=== PATIENT | female | born 1950 | race Caucasian/White ===

== ENCOUNTER 2020-11-25 21:32 | Inpatient (IN) ==
[2020-11-26] MEDS ORDERED: Naloxone 0.4 MG/ML INJ IVP PRN (00:43)
[2020-11-26] MEDS ORDERED: Ondansetron 4 MG/2 ML VIAL IVP PRN (00:43)
[2020-11-26 01:47] LABS: Basophils % 0.3 %; Hematocrit 37.4 % (35.3-44.9); Hemoglobin 12.5 g/dL (11.5-15.4); Immature Granulocytes % 0.8 % (0-4); Lymphocytes # 1.1 K/mcL (0.6-4.6); Lymphocytes % 30.3 %; Mean Corpuscular HGB Conc 33.4 g/dL (31.6-35.5); Mean Corpuscular Hemoglobin 30.7 pg (28.0-33.3); Mean Corpuscular Volume 91.9 fL (83.0-100.0); Mean Platelet Volume 9.7 fL (9.4-12.4); Monocytes # 0.4 K/mcL (0.0-1.3); Neutrophils # 2.2 K/mcL (1.6-8.9); Platelet Count 249 K/mcL (140-400); Red Blood Count 4.07 M/mcL (3.82-4.97); Red Cell Distribution Width 13.5 % (11.5-14.5); Segmented Neutrophils % 58.6 %; White Blood Count 3.7 K/mcL (4.3-11.1)
[2020-11-26] MEDS: Acetaminophen 325 MG TABLET PO PRN ×2 (01:48→21:34)
[2020-11-26 02:02] LABS: INR 1.1; Prothrombin Time 12.4 Seconds (9.4-12.1)
[2020-11-26 02:05] LABS: Platelet Estimate Normal (Normal); Toxic Granulation Present (Not Present); Toxic Vacuolation Present (Not Present)
[2020-11-26 02:06] LABS: Anisocytosis 1+ (Not Present); Reactive Lymphocytes Present (Not Present)
[2020-11-26 02:07] LABS: Alanine Aminotransferase 30 Units/L (7-52); Albumin 3.2 g/dL (3.5-5.7); Albumin/Globulin Ratio 1.2 (1.1-2.2); Alkaline Phosphatase 91 Units/L (34-104); Aspartate Amino Transferase 50 Units/L (13-39); BUN/Creatinine Ratio 15 (6-26); Bilirubin,Total 0.4 mg/dL (0.3-1.0); Blood Urea Nitrogen 7 mg/dL (8-23); Calcium 8.3 mg/dL (8.6-10.3); Carbon Dioxide 24 mEq/L (23-29); Chloride 108 mEq/L (98-107); Globulin 2.7 g/dL (2.4-3.5); Glucose 140 mg/dL (70-105); Lactate Dehydrogenase 644 Units/L (140-271); Magnesium 1.8 mg/dL (1.6-2.6); Osmolality,Calculated 290 (280-300); Potassium 3.7 mEq/L (3.5-5.1); Sodium 140 mEq/L (136-145); Total Protein 5.9 g/dL (6.4-8.9); eGFR For African Americans > 60 (> 60); eGFR For Non-African Americans > 60 (> 60)
[2020-11-26 02:31] LABS: Ferritin 971 ng/mL (10-120)
[2020-11-26] MEDS: Ipratropium 1 PUFF INHALER IH SCH ×7 (03:57→23:09)
[2020-11-26] MEDS: *HR* Enoxaparin 30 MG/0.3 ML SYRINGE SQ SCH (04:55)
[2020-11-26] MEDS: levoFLOXacin 750 MG TABLET PO SCH (08:30)
[2020-11-26] MEDS: Dexamethasone 4 MG/ML VIAL IVP SCH (08:32)
[2020-11-26] MEDS ORDERED: Nicotine 2 MG GUM BC PRN (17:48)
[2020-11-26] MEDS: Latanoprost 2.5 ML BOTTLE BOTH EYES SCH (21:34)
[2020-11-27] MEDS: Ipratropium 1 PUFF INHALER IH SCH ×6 (04:16→23:27)
[2020-11-27] MEDS: *HR* Enoxaparin 30 MG/0.3 ML SYRINGE SQ SCH (07:50)
[2020-11-27] MEDS: Dexamethasone 4 MG/ML VIAL IVP SCH (08:36)
[2020-11-27] MEDS: levoFLOXacin 750 MG TABLET PO SCH (08:36)
[2020-11-27] MEDS ORDERED: Aspirin Enteric Coated 81 MG Tablet PO SCH (09:00)
[2020-11-27] MEDS ORDERED: Dexamethasone Sodium Phos/PF 10 MG/ML VIAL IVP ONE (11:12)
[2020-11-27 13:56] LABS: Hematocrit 37.6 % (35.3-44.9); Hemoglobin 12.4 g/dL (11.5-15.4); Mean Corpuscular Hemoglobin 30.2 pg (28.0-33.3); Mean Corpuscular Volume 91.7 fL (83.0-100.0); Mean Platelet Volume 9.5 fL (9.4-12.4); Platelet Count 335 K/mcL (140-400); Red Cell Distribution Width 13.4 % (11.5-14.5)
[2020-11-27 13:57] LABS: White Blood Count 12.1 K/mcL (4.3-11.1)
[2020-11-27 14:17] LABS: Alanine Aminotransferase 45 Units/L (7-52); Albumin 3.1 g/dL (3.5-5.7); Albumin/Globulin Ratio 1.1 (1.1-2.2); Alkaline Phosphatase 107 Units/L (34-104); Aspartate Amino Transferase 55 Units/L (13-39); BUN/Creatinine Ratio 27 (6-26); Bilirubin,Direct 0.1 mg/dL (0.0-0.2); Bilirubin,Indirect 0.4 mg/dL (0.0-1.0); Bilirubin,Total 0.5 mg/dL (0.3-1.0); Blood Urea Nitrogen 13 mg/dL (8-23); Calcium 8.4 mg/dL (8.6-10.3); Carbon Dioxide 27 mEq/L (23-29); Chloride 106 mEq/L (98-107); Globulin 2.7 g/dL (2.4-3.5); Glucose 179 mg/dL (70-105); Osmolality,Calculated 297 (280-300); Potassium 3.9 mEq/L (3.5-5.1); Sodium 141 mEq/L (136-145); Total Protein 5.8 g/dL (6.4-8.9); eGFR For African Americans > 60 (> 60); eGFR For Non-African Americans > 60 (> 60)
[2020-11-27] MEDS ORDERED: Remdesivir 200 MG in 0.9 % Sodium Chloride 100 ML IVPB ONE (15:00)
[2020-11-27] MEDS: Acetaminophen 325 MG TABLET PO PRN (20:50)
[2020-11-27] MEDS: Latanoprost 2.5 ML BOTTLE BOTH EYES SCH (20:54)
[2020-11-28] MEDS: Ipratropium 1 PUFF INHALER IH SCH ×5 (03:58→20:20)
[2020-11-28] MEDS: *HR* Enoxaparin 40 MG/0.4 ML SYRINGE SQ SCH (05:12)
[2020-11-28 05:33] LABS: INR 1.1; Prothrombin Time 12.6 Seconds (9.4-12.1)
[2020-11-28 05:40] LABS: Alanine Aminotransferase 42 Units/L (7-52); Albumin 2.9 g/dL (3.5-5.7); Albumin/Globulin Ratio 1.1 (1.1-2.2); Alkaline Phosphatase 102 Units/L (34-104); Aspartate Amino Transferase 36 Units/L (13-39); BUN/Creatinine Ratio 38 (6-26); Bilirubin,Direct 0.1 mg/dL (0.0-0.2); Bilirubin,Indirect 0.4 mg/dL (0.0-1.0); Bilirubin,Total 0.5 mg/dL (0.3-1.0); Blood Urea Nitrogen 16 mg/dL (8-23); Calcium 8.3 mg/dL (8.6-10.3); Carbon Dioxide 25 mEq/L (23-29); Chloride 106 mEq/L (98-107); Globulin 2.6 g/dL (2.4-3.5); Glucose 133 mg/dL (70-105); Osmolality,Calculated 293 (280-300); Potassium 3.8 mEq/L (3.5-5.1); Sodium 140 mEq/L (136-145); Total Protein 5.5 g/dL (6.4-8.9); eGFR For African Americans > 60 (> 60); eGFR For Non-African Americans > 60 (> 60)
[2020-11-28 06:12] LABS: Mean Corpuscular HGB Conc 33.4 g/dL (31.6-35.5); Mean Corpuscular Hemoglobin 30.5 pg (28.0-33.3); Mean Platelet Volume 9.7 fL (9.4-12.4); Platelet Count 337 K/mcL (140-400); Red Blood Count 3.84 M/mcL (3.82-4.97); Red Cell Distribution Width 13.4 % (11.5-14.5); White Blood Count 7.8 K/mcL (4.3-11.1)
[2020-11-28 06:13] LABS: Hemoglobin 11.7 g/dL (11.5-15.4); Mean Corpuscular Volume 91.1 fL (83.0-100.0)
[2020-11-28 06:48] LABS: Magnesium 2.1 mg/dL (1.6-2.6)
[2020-11-28] MEDS: Dexamethasone Sodium Phos/PF 10 MG/ML VIAL IVP SCH (08:55)
[2020-11-28] MEDS: Remdesivir 100 MG in 0.9 % Sodium Chloride 100 ML IVPB SCH (15:39)
[2020-11-28] MEDS ORDERED: Furosemide 20 MG/2 ML VIAL IVP ONE (16:00)
[2020-11-28] MEDS: Latanoprost 2.5 ML BOTTLE BOTH EYES SCH (20:32)
[2020-11-28] MEDS: Acetaminophen 325 MG TABLET PO PRN (20:43)
[2020-11-29] MEDS: Ipratropium 1 PUFF INHALER IH SCH ×7 (00:25→23:12)
[2020-11-29 03:53] LABS: INR 1.2; Prothrombin Time 13.6 Seconds (9.4-12.1)
[2020-11-29 04:01] LABS: Alanine Aminotransferase 76 Units/L (7-52); Albumin 2.9 g/dL (3.5-5.7); Albumin/Globulin Ratio 1.1 (1.1-2.2); Alkaline Phosphatase 95 Units/L (34-104); Aspartate Amino Transferase 49 Units/L (13-39); BUN/Creatinine Ratio 54 (6-26); Bilirubin,Direct 0.2 mg/dL (0.0-0.2); Bilirubin,Indirect 0.4 mg/dL (0.0-1.0); Bilirubin,Total 0.6 mg/dL (0.3-1.0); Blood Urea Nitrogen 26 mg/dL (8-23); Calcium 8.1 mg/dL (8.6-10.3); Carbon Dioxide 29 mEq/L (23-29); Chloride 105 mEq/L (98-107); Globulin 2.7 g/dL (2.4-3.5); Glucose 140 mg/dL (70-105); Hematocrit 36.3 % (35.3-44.9); Hemoglobin 11.9 g/dL (11.5-15.4); Mean Corpuscular HGB Conc 32.8 g/dL (31.6-35.5); Mean Corpuscular Hemoglobin 30.6 pg (28.0-33.3); Mean Corpuscular Volume 93.3 fL (83.0-100.0); Mean Platelet Volume 10.3 fL (9.4-12.4); Osmolality,Calculated 301 (280-300); Platelet Count 353 K/mcL (140-400); Potassium 3.6 mEq/L (3.5-5.1); Red Blood Count 3.89 M/mcL (3.82-4.97); Red Cell Distribution Width 13.5 % (11.5-14.5); Sodium 142 mEq/L (136-145); Total Protein 5.6 g/dL (6.4-8.9); White Blood Count 11.3 K/mcL (4.3-11.1); eGFR For African Americans > 60 (> 60); eGFR For Non-African Americans > 60 (> 60)
[2020-11-29] MEDS: *HR* Enoxaparin 40 MG/0.4 ML SYRINGE SQ SCH (05:47)
[2020-11-29] MEDS ORDERED: Furosemide 40 MG/4 ML VIAL IVP ONE (08:08)
[2020-11-29] MEDS: Dexamethasone Sodium Phos/PF 10 MG/ML VIAL IVP SCH (08:49)
[2020-11-29] MEDS ORDERED: Furosemide 20 MG/2 ML VIAL IVP ONE (11:57)
[2020-11-29] MEDS: Remdesivir 100 MG in 0.9 % Sodium Chloride 100 ML IVPB SCH (15:16)
[2020-11-29] MEDS: Latanoprost 2.5 ML BOTTLE BOTH EYES SCH (21:09)
[2020-11-29] MEDS: Acetaminophen 325 MG TABLET PO PRN (21:28)
[2020-11-29] MEDS: Melatonin 3 MG TABLET PO PRN (21:28)
[2020-11-30] MEDS: Ipratropium 1 PUFF INHALER IH SCH ×6 (04:37→23:01)
[2020-11-30 05:15] LABS: Hematocrit 35.9 % (35.3-44.9); Hemoglobin 11.8 g/dL (11.5-15.4); Mean Corpuscular HGB Conc 32.9 g/dL (31.6-35.5); Mean Corpuscular Hemoglobin 30.8 pg (28.0-33.3); Mean Corpuscular Volume 93.7 fL (83.0-100.0); Mean Platelet Volume 9.9 fL (9.4-12.4); Platelet Count 393 K/mcL (140-400); Red Blood Count 3.83 M/mcL (3.82-4.97); Red Cell Distribution Width 13.1 % (11.5-14.5); White Blood Count 9.9 K/mcL (4.3-11.1)
[2020-11-30 05:22] LABS: INR 1.2; Prothrombin Time 13.5 Seconds (9.4-12.1)
[2020-11-30 05:34] LABS: Alanine Aminotransferase 64 Units/L (7-52); Albumin 2.9 g/dL (3.5-5.7); Albumin/Globulin Ratio 1.1 (1.1-2.2); Alkaline Phosphatase 88 Units/L (34-104); Aspartate Amino Transferase 27 Units/L (13-39); BUN/Creatinine Ratio 50 (6-26); Bilirubin,Direct 0.1 mg/dL (0.0-0.2); Bilirubin,Indirect 0.6 mg/dL (0.0-1.0); Bilirubin,Total 0.7 mg/dL (0.3-1.0); Blood Urea Nitrogen 31 mg/dL (8-23); Calcium 8.3 mg/dL (8.6-10.3); Carbon Dioxide 34 mEq/L (23-29); Chloride 103 mEq/L (98-107); Globulin 2.7 g/dL (2.4-3.5); Glucose 134 mg/dL (70-105); Osmolality,Calculated 305 (280-300); Potassium 3.7 mEq/L (3.5-5.1); Sodium 143 mEq/L (136-145); Total Protein 5.6 g/dL (6.4-8.9); eGFR For African Americans > 60 (> 60); eGFR For Non-African Americans > 60 (> 60)
[2020-11-30] MEDS: *HR* Enoxaparin 40 MG/0.4 ML SYRINGE SQ SCH (06:16)
[2020-11-30] MEDS: Dexamethasone Sodium Phos/PF 10 MG/ML VIAL IVP SCH (08:01)
[2020-11-30] MEDS: Remdesivir 100 MG in 0.9 % Sodium Chloride 100 ML IVPB SCH (15:38)
[2020-11-30] MEDS ORDERED: Furosemide 40 MG/4 ML VIAL IVP ONE (17:08)
[2020-11-30] MEDS: Latanoprost 2.5 ML BOTTLE BOTH EYES SCH (20:37)
[2020-11-30] MEDS: Acetaminophen 325 MG TABLET PO PRN (22:41)
[2020-12-01 02:58] LABS: Hematocrit 36.7 % (35.3-44.9); Hemoglobin 12.3 g/dL (11.5-15.4); Mean Corpuscular HGB Conc 33.5 g/dL (31.6-35.5); Mean Corpuscular Hemoglobin 31.1 pg (28.0-33.3); Mean Corpuscular Volume 92.9 fL (83.0-100.0); Mean Platelet Volume 9.7 fL (9.4-12.4); Platelet Count 383 K/mcL (140-400); Red Blood Count 3.95 M/mcL (3.82-4.97); Red Cell Distribution Width 12.9 % (11.5-14.5); White Blood Count 13.3 K/mcL (4.3-11.1)
[2020-12-01 03:06] LABS: INR 1.2; Prothrombin Time 14.2 Seconds (9.4-12.1)
[2020-12-01 03:17] LABS: Alanine Aminotransferase 61 Units/L (7-52); Albumin 2.9 g/dL (3.5-5.7); Albumin/Globulin Ratio 1.1 (1.1-2.2); Alkaline Phosphatase 88 Units/L (34-104); Aspartate Amino Transferase 28 Units/L (13-39); BUN/Creatinine Ratio 53 (6-26); Bilirubin,Direct 0.2 mg/dL (0.0-0.2); Bilirubin,Indirect 0.5 mg/dL (0.0-1.0); Bilirubin,Total 0.7 mg/dL (0.3-1.0); Blood Urea Nitrogen 27 mg/dL (8-23); Calcium 8.2 mg/dL (8.6-10.3); Carbon Dioxide 31 mEq/L (23-29); Chloride 104 mEq/L (98-107); Globulin 2.7 g/dL (2.4-3.5); Glucose 126 mg/dL (70-105); Osmolality,Calculated 299 (280-300); Potassium 3.6 mEq/L (3.5-5.1); Sodium 141 mEq/L (136-145); Total Protein 5.6 g/dL (6.4-8.9); eGFR For African Americans > 60 (> 60); eGFR For Non-African Americans > 60 (> 60)
[2020-12-01] MEDS: Ipratropium 1 PUFF INHALER IH SCH ×6 (04:16→23:00)
[2020-12-01] MEDS: *HR* Enoxaparin 40 MG/0.4 ML SYRINGE SQ SCH (05:57)
[2020-12-01] MEDS: Dexamethasone Sodium Phos/PF 10 MG/ML VIAL IVP SCH (09:17)
[2020-12-01] MEDS ORDERED: Sennosides/Docusate Sodium TABLET PO PRN (13:54)
[2020-12-01] MEDS ORDERED: Sennosides/Docusate Sodium TABLET PO ONE (13:55)
[2020-12-01] MEDS: Remdesivir 100 MG in 0.9 % Sodium Chloride 100 ML IVPB SCH (15:52)
[2020-12-01] MEDS: Latanoprost 2.5 ML BOTTLE BOTH EYES SCH (21:32)
[2020-12-01] MEDS: Acetaminophen 325 MG TABLET PO PRN (21:55)
[2020-12-02] MEDS: Ipratropium 1 PUFF INHALER IH SCH ×5 (03:56→19:56)
[2020-12-02] MEDS: *HR* Enoxaparin 40 MG/0.4 ML SYRINGE SQ SCH (05:45)
[2020-12-02 05:52] LABS: Basophils % 0.5 %; Eosinophils # 0.1 K/mcL (0.0-0.6); Hematocrit 35.9 % (35.3-44.9); Hemoglobin 11.9 g/dL (11.5-15.4); Immature Granulocytes % 0.9 % (0-4); Lymphocytes # 1.2 K/mcL (0.6-4.6); Lymphocytes % 14.1 %; Mean Corpuscular HGB Conc 33.1 g/dL (31.6-35.5); Mean Corpuscular Hemoglobin 30.7 pg (28.0-33.3); Mean Corpuscular Volume 92.5 fL (83.0-100.0); Monocytes # 0.9 K/mcL (0.0-1.3); Monocytes % 10.5 %; Neutrophils # 6.3 K/mcL (1.6-8.9); Platelet Count 371 K/mcL (140-400); Red Blood Count 3.88 M/mcL (3.82-4.97); Red Cell Distribution Width 13.1 % (11.5-14.5); White Blood Count 8.6 K/mcL (4.3-11.1)
[2020-12-02 06:10] LABS: Alanine Aminotransferase 54 Units/L (7-52); Albumin 2.8 g/dL (3.5-5.7); Alkaline Phosphatase 94 Units/L (34-104); Aspartate Amino Transferase 23 Units/L (13-39); BUN/Creatinine Ratio 41 (6-26); Bilirubin,Direct 0.2 mg/dL (0.0-0.2); Bilirubin,Indirect 0.4 mg/dL (0.0-1.0); Bilirubin,Total 0.6 mg/dL (0.3-1.0); Blood Urea Nitrogen 22 mg/dL (8-23); Calcium 8.2 mg/dL (8.6-10.3); Carbon Dioxide 34 mEq/L (23-29); Chloride 103 mEq/L (98-107); Globulin 2.7 g/dL (2.4-3.5); Glucose 148 mg/dL (70-105); Osmolality,Calculated 298 (280-300); Sodium 141 mEq/L (136-145); Total Protein 5.5 g/dL (6.4-8.9); eGFR For African Americans > 60 (> 60); eGFR For Non-African Americans > 60 (> 60)
[2020-12-02] MEDS ORDERED: Furosemide 20 MG/2 ML VIAL IVP ONE (07:45)
[2020-12-02] MEDS: Dexamethasone Sodium Phos/PF 10 MG/ML VIAL IVP SCH (08:03)
[2020-12-02] MEDS: Acetaminophen 325 MG TABLET PO PRN (19:53)
[2020-12-02] MEDS: Latanoprost 2.5 ML BOTTLE BOTH EYES SCH (20:07)
[2020-12-03] MEDS: Ipratropium 1 PUFF INHALER IH SCH ×6 (00:26→20:13)
[2020-12-03 06:33] LABS: Basophils % 0.3 %; Eosinophils # 0.5 K/mcL (0.0-0.6); Eosinophils % 4.7 %; Hematocrit 38.3 % (35.3-44.9); Hemoglobin 12.6 g/dL (11.5-15.4); Immature Granulocytes % 1.7 % (0-4); Lymphocytes # 1.7 K/mcL (0.6-4.6); Lymphocytes % 14.8 %; Mean Corpuscular HGB Conc 32.9 g/dL (31.6-35.5); Mean Corpuscular Hemoglobin 30.7 pg (28.0-33.3); Mean Corpuscular Volume 93.4 fL (83.0-100.0); Mean Platelet Volume 10.1 fL (9.4-12.4); Monocytes # 1.2 K/mcL (0.0-1.3); Monocytes % 10.8 %; Neutrophils # 7.8 K/mcL (1.6-8.9); Platelet Count 373 K/mcL (140-400); Red Cell Distribution Width 13.2 % (11.5-14.5); Segmented Neutrophils % 67.7 %; White Blood Count 11.4 K/mcL (4.3-11.1)
[2020-12-03] MEDS: *HR* Enoxaparin 40 MG/0.4 ML SYRINGE SQ SCH (06:53)
[2020-12-03 06:55] LABS: Alanine Aminotransferase 44 Units/L (7-52); Albumin 2.7 g/dL (3.5-5.7); Alkaline Phosphatase 89 Units/L (34-104); Aspartate Amino Transferase 15 Units/L (13-39); BUN/Creatinine Ratio 34 (6-26); Bilirubin,Direct 0.2 mg/dL (0.0-0.2); Bilirubin,Indirect 0.6 mg/dL (0.0-1.0); Bilirubin,Total 0.8 mg/dL (0.3-1.0); Blood Urea Nitrogen 22 mg/dL (8-23); Calcium 8.3 mg/dL (8.6-10.3); Carbon Dioxide 35 mEq/L (23-29); Chloride 102 mEq/L (98-107); Globulin 2.8 g/dL (2.4-3.5); Glucose 120 mg/dL (70-105); Osmolality,Calculated 295 (280-300); Potassium 4.3 mEq/L (3.5-5.1); Sodium 140 mEq/L (136-145); Total Protein 5.5 g/dL (6.4-8.9); eGFR For African Americans > 60 (> 60); eGFR For Non-African Americans > 60 (> 60)
[2020-12-03] MEDS ORDERED: Furosemide 20 MG/2 ML VIAL IVP ONE (07:36)
[2020-12-03] MEDS: Dexamethasone Sodium Phos/PF 10 MG/ML VIAL IVP SCH (09:13)
[2020-12-03] MEDS ORDERED: Triamcinolone Acet 0.1% CRM 15 GM TUBE TP PRN (14:47)
[2020-12-03] MEDS: polyethylene glycoL 3350 17 GM POWD.PACK PO SCH (15:41)
[2020-12-03] MEDS: Latanoprost 2.5 ML BOTTLE BOTH EYES SCH (20:31)
[2020-12-04] MEDS: Ipratropium 1 PUFF INHALER IH SCH ×7 (00:16→23:24)
[2020-12-04] MEDS: Melatonin 3 MG TABLET PO PRN (00:47)
[2020-12-04 04:57] LABS: Basophils # 0.1 K/mcL (0.0-0.2); Basophils % 0.5 %; Eosinophils # 0.4 K/mcL (0.0-0.6); Eosinophils % 3.3 %; Hematocrit 37.3 % (35.3-44.9); Hemoglobin 12.3 g/dL (11.5-15.4); Immature Granulocytes % 2.8 % (0-4); Lymphocytes # 1.5 K/mcL (0.6-4.6); Lymphocytes % 12.9 %; Mean Corpuscular Hemoglobin 30.2 pg (28.0-33.3); Mean Corpuscular Volume 91.6 fL (83.0-100.0); Mean Platelet Volume 10.5 fL (9.4-12.4); Monocytes # 1.4 K/mcL (0.0-1.3); Monocytes % 11.5 %; Neutrophils # 8.3 K/mcL (1.6-8.9); Platelet Count 376 K/mcL (140-400); Red Blood Count 4.07 M/mcL (3.82-4.97); Red Cell Distribution Width 13.2 % (11.5-14.5)
[2020-12-04 05:16] LABS: Alanine Aminotransferase 40 Units/L (7-52); Albumin 2.8 g/dL (3.5-5.7); Alkaline Phosphatase 82 Units/L (34-104); Aspartate Amino Transferase 12 Units/L (13-39); BUN/Creatinine Ratio 39 (6-26); Bilirubin,Direct 0.2 mg/dL (0.0-0.2); Bilirubin,Indirect 0.4 mg/dL (0.0-1.0); Bilirubin,Total 0.6 mg/dL (0.3-1.0); Blood Urea Nitrogen 22 mg/dL (8-23); Calcium 8.3 mg/dL (8.6-10.3); Carbon Dioxide 33 mEq/L (23-29); Chloride 99 mEq/L (98-107); Globulin 2.8 g/dL (2.4-3.5); Glucose 194 mg/dL (70-105); Osmolality,Calculated 297 (280-300); Potassium 3.9 mEq/L (3.5-5.1); Sodium 139 mEq/L (136-145); Total Protein 5.6 g/dL (6.4-8.9); eGFR For African Americans > 60 (> 60); eGFR For Non-African Americans > 60 (> 60)
[2020-12-04] MEDS: *HR* Enoxaparin 40 MG/0.4 ML SYRINGE SQ SCH (05:42)
[2020-12-04] MEDS: polyethylene glycoL 3350 17 GM POWD.PACK PO SCH (07:26)
[2020-12-04] MEDS: Dexamethasone Sodium Phos/PF 10 MG/ML VIAL IVP SCH (07:26)
[2020-12-04] MEDS: Latanoprost 2.5 ML BOTTLE BOTH EYES SCH (19:44)
[2020-12-05] MEDS: Melatonin 3 MG TABLET PO PRN ×2 (02:06→20:49)
[2020-12-05] MEDS: Acetaminophen 325 MG TABLET PO PRN (02:07)
[2020-12-05] MEDS: Ipratropium 1 PUFF INHALER IH SCH ×6 (03:36→23:34)
[2020-12-05 04:16] LABS: Basophils # 0.1 K/mcL (0.0-0.2); Basophils % 0.5 %; Eosinophils # 0.4 K/mcL (0.0-0.6); Hematocrit 38.2 % (35.3-44.9); Hemoglobin 12.6 g/dL (11.5-15.4); Lymphocytes # 1.7 K/mcL (0.6-4.6); Lymphocytes % 12.5 %; Mean Corpuscular Volume 93.9 fL (83.0-100.0); Mean Platelet Volume 10.4 fL (9.4-12.4); Monocytes # 1.5 K/mcL (0.0-1.3); Monocytes % 11.1 %; Neutrophils # 9.2 K/mcL (1.6-8.9); Platelet Count 390 K/mcL (140-400); Red Blood Count 4.07 M/mcL (3.82-4.97); Red Cell Distribution Width 13.4 % (11.5-14.5); Segmented Neutrophils % 68.9 %; White Blood Count 13.4 K/mcL (4.3-11.1)
[2020-12-05 04:35] LABS: Alanine Aminotransferase 43 Units/L (7-52); Albumin 2.8 g/dL (3.5-5.7); Alkaline Phosphatase 78 Units/L (34-104); Aspartate Amino Transferase 15 Units/L (13-39); BUN/Creatinine Ratio 42 (6-26); Bilirubin,Direct 0.1 mg/dL (0.0-0.2); Bilirubin,Indirect 0.4 mg/dL (0.0-1.0); Bilirubin,Total 0.5 mg/dL (0.3-1.0); Blood Urea Nitrogen 28 mg/dL (8-23); Calcium 8.1 mg/dL (8.6-10.3); Carbon Dioxide 31 mEq/L (23-29); Chloride 100 mEq/L (98-107); Globulin 2.7 g/dL (2.4-3.5); Glucose 175 mg/dL (70-105); Osmolality,Calculated 298 (280-300); Potassium 3.8 mEq/L (3.5-5.1); Sodium 139 mEq/L (136-145); Total Protein 5.5 g/dL (6.4-8.9); eGFR For African Americans > 60 (> 60); eGFR For Non-African Americans > 60 (> 60)
[2020-12-05] MEDS: *HR* Enoxaparin 40 MG/0.4 ML SYRINGE SQ SCH (06:11)
[2020-12-05] MEDS: Dexamethasone Sodium Phos/PF 10 MG/ML VIAL IVP SCH (09:12)
[2020-12-05] MEDS: polyethylene glycoL 3350 17 GM POWD.PACK PO SCH (09:12)
[2020-12-05] MEDS: Famotidine 20 MG TABLET PO SCH ×2 (11:34→20:50)
[2020-12-05] MEDS: Latanoprost 2.5 ML BOTTLE BOTH EYES SCH (20:50)
[2020-12-06] MEDS: Ipratropium 1 PUFF INHALER IH SCH ×6 (04:05→23:58)
[2020-12-06 05:55] LABS: Basophils # 0.1 K/mcL (0.0-0.2); Basophils % 0.9 %; Eosinophils # 0.5 K/mcL (0.0-0.6); Eosinophils % 3.1 %; Hematocrit 38.5 % (35.3-44.9); Hemoglobin 12.5 g/dL (11.5-15.4); Immature Granulocytes % 5.1 % (0-4); Lymphocytes # 1.8 K/mcL (0.6-4.6); Lymphocytes % 12.5 %; Mean Corpuscular HGB Conc 32.5 g/dL (31.6-35.5); Mean Corpuscular Hemoglobin 30.7 pg (28.0-33.3); Mean Corpuscular Volume 94.6 fL (83.0-100.0); Mean Platelet Volume 10.3 fL (9.4-12.4); Monocytes # 1.5 K/mcL (0.0-1.3); Monocytes % 10.3 %; Platelet Count 366 K/mcL (140-400); Red Blood Count 4.07 M/mcL (3.82-4.97); Red Cell Distribution Width 13.6 % (11.5-14.5); Segmented Neutrophils % 68.1 %; White Blood Count 14.7 K/mcL (4.3-11.1)
[2020-12-06] MEDS: *HR* Enoxaparin 40 MG/0.4 ML SYRINGE SQ SCH (06:02)
[2020-12-06 06:19] LABS: BUN/Creatinine Ratio 38 (6-26); Blood Urea Nitrogen 27 mg/dL (8-23); Calcium 8.7 mg/dL (8.6-10.3); Carbon Dioxide 34 mEq/L (23-29); Chloride 101 mEq/L (98-107); Glucose 177 mg/dL (70-105); Osmolality,Calculated 295 (280-300); Sodium 138 mEq/L (136-145); eGFR For African Americans > 60 (> 60); eGFR For Non-African Americans > 60 (> 60)
[2020-12-06] MEDS: Famotidine 20 MG TABLET PO SCH ×2 (09:31→22:37)
[2020-12-06] MEDS: Dexamethasone Sodium Phos/PF 10 MG/ML VIAL IVP SCH (09:32)
[2020-12-06] MEDS: polyethylene glycoL 3350 17 GM POWD.PACK PO SCH (09:32)
[2020-12-06] MEDS: Acetaminophen 325 MG TABLET PO PRN (22:37)
[2020-12-06] MEDS: Latanoprost 2.5 ML BOTTLE BOTH EYES SCH (22:37)
[2020-12-07] MEDS: Ipratropium 1 PUFF INHALER IH SCH ×4 (03:47→16:52)
[2020-12-07] MEDS: *HR* Enoxaparin 40 MG/0.4 ML SYRINGE SQ SCH (05:26)
[2020-12-07 06:43] LABS: Hematocrit 40.2 % (35.3-44.9); Hemoglobin 13.1 g/dL (11.5-15.4); Mean Corpuscular HGB Conc 32.6 g/dL (31.6-35.5); Mean Corpuscular Hemoglobin 30.5 pg (28.0-33.3); Mean Corpuscular Volume 93.7 fL (83.0-100.0); Mean Platelet Volume 10.6 fL (9.4-12.4); Nucleated Red Blood Cells 0.3 /100 WBC (0); Platelet Count 392 K/mcL (140-400); Red Blood Count 4.29 M/mcL (3.82-4.97); White Blood Count 19.2 K/mcL (4.3-11.1)
[2020-12-07 07:02] LABS: BUN/Creatinine Ratio 50 (6-26); Blood Urea Nitrogen 30 mg/dL (8-23); Calcium 9.2 mg/dL (8.6-10.3); Carbon Dioxide 29 mEq/L (23-29); Chloride 99 mEq/L (98-107); Glucose 135 mg/dL (70-105); Osmolality,Calculated 290 (280-300); Potassium 4.5 mEq/L (3.5-5.1); Sodium 136 mEq/L (136-145); eGFR For African Americans > 60 (> 60); eGFR For Non-African Americans > 60 (> 60)
[2020-12-07 07:08] LABS: Lymphocytes # 1.9 K/mcL (0.6-4.6); Monocytes # 0.8 K/mcL (0.0-1.3); Neutrophils # 15.7 K/mcL (1.6-8.9); Platelet Estimate Normal (Normal); Polychromasia 1+ (Not Present); Reactive Lymphocytes Present (Not Present)
[2020-12-07 07:09] VITALS: BP 109/71
[2020-12-07 07:09] LABS: Anisocytosis 1+ (Not Present)
[2020-12-07] MEDS: Famotidine 20 MG TABLET PO SCH (09:53)
[2020-12-07] MEDS: polyethylene glycoL 3350 17 GM POWD.PACK PO SCH ×2 (09:53→09:55)
== END 2020-12-07 16:50 | disposition home health service (06) | DRG 177 ==
LOC: 2NENU 23:56 → INTOOBSV 23:56 → SUATTDRO 23:56 → 2NENU 11-30 17:27
PROVIDERS: ADMIT Internal Medicine; ATTEND Internal Medicine